=== PATIENT | female | born 1955 | race Caucasian/White ===

== ENCOUNTER 2016-09-02 16:05 | Inpatient (IN) | payer BC ==
[~2016-09-02] VITALS: Ht 167.6 cm; Wt 62.5 kg
--- NOTE | ~2016-09-02 | HP ---
[facility] AGE: 60 Y [address] ROOM: [id number] [place], [place] [address] LOCATION: GICU ADMIT DATE: 09/02/2016 History & Physical DISCHARGE DATE: FAMILY PHYSICIAN: PHYSICIAN, UNKNOWN ATTENDING PHYSICIAN: Montse RODRIGEZ DATE OF SERVICE: CHIEF COMPLAINT: Stroke. HISTORY OF PRESENT ILLNESS: The patient is a 60-year-old female with past medical history of lymphoma, status post chemotherapy and radiation, systolic CHF, and hypothyroidism, who presents here from [facility] with abnormal CT image. The patient reports that she has been having some word-finding difficulty since Monday. Reports that it got a little bit worse today and went to the emergency department for evaluation. CT head done at [facility] showed hypodensity changes in the left parietal lobe concerning for ischemic stroke and small high density change concerning for hemorrhagic conversion. The patient was transferred to our facility for a Neurology consult. The patient reports that she is currently asymptomatic and is able to communicate well. She reports that her symptoms of word-finding was intermittent. Currently asymptomatic. Reports that she takes aspirin daily and she has taken her aspirin today. She denies any vision change, nausea, vomiting, or abdominal pain, fall, motor weakness, headache, chest pain, shortness of breath. PAST MEDICAL HISTORY: 1. Lymphoma status post chemotherapy and radiation. 2. Systolic CHF. Told that it was secondary to her radiation. 3. Hypothyroidism. PAST SURGICAL HISTORY: section. FAMILY HISTORY: Mother had a CVA. Father has esophageal cancer. SOCIAL HISTORY: Works at [employer]. The patient has 3 kids and 6 grandkids. Denies smoking and drinking. MEDICATIONS: PAT[facility]'S NAME: [facility] AGE: 60 Y [address] ROOM: [id number] [place], [place] [address] LOCATION: CU ADMIT DATE: 09/02/2016 History & Physical DISCHARGE DATE: FAMILY PHYSICIAN: PHYSICIAN, UNKNOWN ATTENDING PHYSICIAN: Montse RODRIGEZ Currently being reconciled. REVIEW OF SYSTEMS: All systems have been reviewed and are negative except for what I mentioned in the HPI. PHYSICAL EXAMINATION: VITAL SIGNS: Temperature afebrile, blood pressure 132/77, heart rate 75, respiratory rate 16, and saturating 97% on room air. GENERAL APPEARANCE: The patient is alert and awake, in no acute distress. HEENT: Head; normocephalic and atraumatic. Eyes; extraocular muscle intact. Peripheral visual intact. Nose; no nasal discharge. Mouth; moist oral mucosa. CHEST: Clear to auscultation bilaterally. HEART: Regular rate and rhythm. No murmurs, rubs, or gallops. ABDOMEN: Soft, nontender, and nondistended. Bowel sounds present. SKIN: Warm to touch. MUSCULOSKELETAL: Range of motion intact. No obvious joint effusion. LABORATORY TECH: The patient alert and oriented x3. Very mild right nasolabial fold flattening. Motor and sensory grossly intact. Cranial nerve 2 through 12 grossly intact. LABORATORY DATA: Labs done at the outpatient shows sodium 139, potassium 4.3, BUN 28, creatinine 1.4, and blood glucose 84. White blood cell count of 5.3, hemoglobin 13.9, and platelets of 139,000. EKG; shows sinus rhythm, nonspecific T-wave changes in 1 and aVL. ASSESSMENT AND PLAN: 1. Cerebrovascular accident: The patient is a 60-year-old female who is presenting here with possible ischemic cerebrovascular accident. The patient is not a candidate for tPA as symptoms started since Monday. Image from outside hospital per Dr. Garcia shows hypodensity changes in the left parietal lobe with concern for ischemic change and some small high density changes with possible hemorrhagic conversion. We will hold aspirin or any antiplatelet for now. We will acquire MRI of the head. The patient has already received aspirin 81 mg today. We will start the patient on Lipitor. We will acquire morning lipid level. Her current NIH score is 1 with right-sided mild nasolabial level fold. She is alert and oriented x3 and no neurological deficits seen other than the nasolabial fold flattening. We will acquire echocardiogram, put the patient on telemonitor, and serial neurological examinations. We will acquire MRI of the head. Carotid duplex of her carotids and echocardiogram. We will hold antiplatelets due to possible hemorrhagic PATIENT'S NAME: COLUMBA CARDENAS [facility] AGE: 60 Y [address] ROOM: [id number], [place] [address] LOCATION: [facility] ADMIT DATE: 09/02/2016 History & Physical DISCHARGE DATE: FAMILY PHYSICIAN: PHYSICIAN, UNKNOWN ATTENDING PHYSICIAN: Montse RODRIGEZ conversion. Discussed the case with Dr. Villalpando, Neurology. Dr. Villalpando will see the patient while she is here. To reassess anti-platelet use after MRI. 2. Acute kidney injury. The patient has a creatinine of 1.4. Etiology most likely secondary to prerenal. We will hold the patient's lisinopril and diuretics. We will start the patient on IV fluids. We will acquire CMS daily. 3. Systolic heart failure. Last echocardiogram according to the patient was below 50%. The patient appears compensated. We will hold diuretics for now due to acute kidney injury. We will follow the patient closely. 4. Hypothyroidism. To continue home medication of Synthroid. 5. Lymphoma. In remission. Greater than 60 minutes were spent in patient's care. 50% of the time was spent in direct patient's care. Case discussed with Dr. Villalpando, our neurologist. To admit the patient as inpatient to workup for cerebrovascular accident and restart anti-platelet when bleeding risk has been identified to be acceptable. To await for MRI. All questions were answered with satisfaction. We will admit the patient. Code status on admission, full code. RAIN DARNELL MD AD/modl /[id number] D: [id number] T: [id number] HISTORY & PHYSICAL
--- NOTE | ~2016-09-02 | DS ---
PATIENT'S NAME: COLUMBA CARDENAS [facility] AGE: 60 Y [address] ROOM: [id number] [place] [address] LOCATION: [facility] ADMIT DATE: 09/02/2016 Discharge Summary DISCHARGE DATE: 09/03/2016 FAMILY PHYSICIAN: Meenu Payton MD ATTENDING PHYSICIAN: Montse RODRIGEZ PRIMARY DIAGNOSES: 1. Left middle cerebral artery strokes, subacute. 2. Expressive aphasia. 3. Chronic systolic congestive heart failure. 4. Essential hypertension. 5. Hypothyroidism. 6. History of lymphoma, currently in remission. OPERATIONS AND PROCEDURES: MRI scan of the brain was obtained 09/02/2016, demonstrating scattered acute/subacute ischemic areas in the distribution of left middle cerebral artery. MRA obtained 09/03/2016, negative for any abnormalities, echocardiogram obtained 09/03/2016, demonstrated an ejection fraction of 40-45%, diastolic dysfunction, septal hypokinesis, and no evidence for PFO or VSD, carotid Doppler ultrasounds obtained 09/03/2016, were pending at the time of discharge. HISTORY OF PRESENTING ILLNESS/REASON FOR ADMISSION: Please refer H and P dictated 09/02/2016. HOSPITAL COURSE: The patient has been to hospital as noted above after being transferred here from [place] with acute cerebrovascular accident. Her presentation was delayed by a couple of days, and therefore she was not a candidate for thrombolysis. Briefly, her symptoms had essentially resolved by the time she arrived here. She was placed on the stroke pathway. MRI scan was obtained as outlined above and she received Physical Therapy, Occupational Therapy, and Speech Therapy evaluations. Physiatry also consulted. Neurology did see her. She was switched from aspirin to Plavix daily and continued on her JELENA inhibitor therapy. Statin therapy with atorvastatin was also added. Her lipid profile was obtained and felt to be favorable. It was recommended that she continue with statin therapy however. Echocardiography and carotid Doppler ultrasounds were obtained. Echocardiography demonstrated an ejection fraction of 40-45%. It was felt that she was well compensated. There was no evidence for PFO or VSD or valve vegetations. By the second day of her hospital stay, the patient had received evaluation by Physical Therapy, Occupational Therapy, and Speech Therapy. She [facility] 60 Y [address] ROOM: [id number] [place], [place] [address] LOCATION: GICU ADMIT DATE: 09/02/2016 Discharge Summary DISCHARGE DATE: 09/03/2016 FAMILY PHYSICIAN: Meenu Payton MD ATTENDING PHYSICIAN: Montse RODRIGEZ felt that her symptoms had completely resolved and requested to go home at that point. Did licensed professional counselor her about her test results to this point including echocardiogram, MRI, and MRA results. We did not have a carotid Doppler result back yet, but she felt that she did want away for this and requested to follow up outpatient. Dr. Villalpando, neurologist had consulted and indicated by telephone that he would be okay with the patient being discharged on Plavix and statin therapy. At that point, it was felt she would be stable enough for discharge to home with plans for outpatient therapies as described above and clinical follow up with Neurology and primary care provider. DISCHARGE INSTRUCTIONS: Diet: Cardiac prudent as tolerated. Activity: As tolerated physical therapy, occupational therapy, and Speech Therapy as outpatient. MEDICATIONS: 1. Atorvastatin 80 mg p.o. daily. 2. Vitamin D3, 2000 units p.o. daily. 3. Plavix 75 mg p.o. daily. 4. Levothyroxine 75 mcg p.o. daily. 5. Metoprolol 12.5 mg p.o. daily. 6. Lisinopril 2.5 mg p.o. b.i.d. 7. Lasix 40 mg p.o. daily. 8. Potassium 10 mEq p.o. daily. 9. Magnesium oxide 400 mg p.o. daily. FOLLOWUP: She will follow up with Dr. Villalpando in 2 weeks. She will follow up with primary care provider in 5-7 days. CONDITION ON DISCHARGE: Fair. Total time spent on discharge process 45 minutes. MD MEY JIMENEZ/sherman /[id number] d: 09/04/16 0204 t: 09/13/16 0000, DISCHARGE SUMMARY
--- NOTE | ~2016-09-02 | CON ---
PATIENT'S NAME: COLUMBA SCHULTE [facility] AGE: 60 Y [address] ROOM: [id number] [place], [place] [address] LOCATION: GICU ADMIT DATE: 09/02/2016 Consultation DISCHARGE DATE: FAMILY PHYSICIAN: PHYSICIAN, UNKNOWN ATTENDING PHYSICIAN: Montse RODRIGEZ DATE OF CONSULTATION: 09/02/2016 TIME OF NEUROLOGIC CONSULTATION: 9 p.m. HISTORY OF PRESENT ILLNESS: Ms. Schulte is a 60-year-old female with a history of hypertension and history of lymphoma that was treated back in the mid , sometime around 2004. She also received radiation supposedly to the mediastinum. This was a non-Hodgkin lymphoma. The patient possibly had a history of hypercoagulable state in the past, and was told that "she had clots in the area of the heart" back a few years ago. The daughter who is a nurse mentions that it may have been secondary to radiation, though I am unclear if the patient has any depressed cardiac output associated with a cardiomyopathy or has a carotid disease associated with radiation to the chest wall. The patient never had a known stroke before. She was in her usual state of health working when she noticed back on Monday two days ago that she was not making sense with her words. She was slurring her speech intermittently throughout the day, and even her daughter noticed that her messages on her cell phone were having poor syntax and garbled. These symptoms were only occurring in and out throughout the day. She had no other symptoms such as a headache nor did she have any focal weakness nor sensory numbness of her body. She denied any problems with walking. She denied any problems with her vision. On the very next day, , she was back at work and noticed the same problems with word slurring, whereby she said she knew what words she wanted to say, but the words were coming out jumbled and without proper syntax. It was then that speaking to her daughter with some symptoms even ongoing into this morning that she decided to go to the Emergency Room in [facility]. There they assessed her with a CAT scan of the brain, and the CAT scan revealed evidence of an acute left MCA territory stroke. It was a small area of likely hemorrhagic conversion in the area of the stroke. We were called today by the physician assistant womens volleyball coach for transfer of this patient for further workup here. Upon her arrival here, the patient was actually doing well. She did not have any slurring of her speech as far as I could hear. She had normal power and PATIENT'S NAME: COLUMBA SCHULTE [facility] AGE: 60 Y [address] ROOM: [id number] [place], [place] [address] LOCATION: GICU ADMIT DATE: 09/02/2016 Consultation DISCHARGE DATE: FAMILY PHYSICIAN: PHYSICIAN, UNKNOWN ATTENDING PHYSICIAN: Montse RODRIGEZ normal sensory exam. I did not hear any errors of the language or problems with word finding. She has remained in normal sinus rhythm, and no evidence to suggest atrial fibrillation nor any rhythm other than normal sinus rhythm. Her blood pressure remains normal into the 120s range. Her CBC and complete metabolic panel were all within normal limits. The patient looked well. HOME MEDICATIONS: Include 1. Vitamin D supplementation 2000 mg daily. 2. Levothyroxine 75 mcg p.o. daily. 3. Toprol XL 12.5 mg p.o. daily. 4. Potassium supplementation 10 mEq p.o. daily. 5. Lisinopril, unknown dose. CURRENT MEDICATIONS: Here in the hospital were 1. Metoprolol 12.5 mg p.o. daily. 2. Levothyroxine 75 mcg p.o. daily. 3. Vitamin D 2000 mg daily. 4. Plavix started on this admission 75 mg p.o. daily. 5. Lipitor started on this admission 80 mg p.o. daily. FAMILY HISTORY: Inconsistent with any cancers or lymphoma. There is no known history of stroke. SOCIAL HISTORY: She denies ever using alcohol. She never smoked. She currently resides in [place]. REVIEW OF SYSTEMS: The patient presented with new onset of aphasia, solely a motor aphasia. No problems with understanding. Speech, some syntax errors were noted in her language over the past 48 hours. She has no focal weakness or sensory complaints. She never had any headaches at the onset of her stroke. She clearly had evidence on CAT scan as well as her MRI of a new territory stroke into the left MCA region of the brain. PHYSICAL EXAMINATION: NEUROLOGICAL: The patient is pleasant and answers all questions appropriately. Mental status is excellent. Speech is clear, I did not appreciate any errors of her speech. In repetition and naming of objects and parts of objects, she named pen and pen tip adequately. She did cross-body commands. Cranial Nerves: A subtle right flattening of the nasolabial fold, but the rest of the cranial nerve exam is normal. 5/5 power with no drift of PATIENT'S NAME: COLUMBA SCHULTE [facility] AGE: 60 Y [address] ROOM: [id number], [place] [address] LOCATION: [facility] ADMIT DATE: 09/02/2016 Consultation DISCHARGE DATE: FAMILY PHYSICIAN: PHYSICIAN, UNKNOWN ATTENDING PHYSICIAN: Montse RODRIGEZ the upper extremities was noted. There was normal bulk and tone of all muscles, and normal power of 5/5 grade in all muscles. Reflexes: Symmetric +2 in deep tendon reflexes of the lower extremities and upper extremities. Sensory exam was completely intact to light touch and double simultaneous stimulation. The patient is able to ambulate easily and no problems with gait. Negative Romberg. IMPRESSION AND RECOMMENDATIONS: Ms. Schulte is a 60-year-old female with essentially no risks for this type of a stroke, which is a large territory stroke into multiple branches of the left middle cerebral artery. Remarkably, she is essentially very emi. It is likely a thromboembolism dislodged into the left MCA. Maybe it was there for some time, and then got dislodged. That is the reason for the patient having a stroke. A proximal region for the clot would be either from the heart itself if the patient does have evidence for the decreased ejection fraction such as hypokinesis or even from a cardiac valve. If this is some type of marantic process, her lymphoma is thought to be stable and cured. However, this is just a conjecture. At some point in time, the patient was on anticoagulation, which sounded like she was on warfarin with Lovenox. She is off this medication for a number of years. I am wondering if she would ultimately require anticoagulation due to a proximal source for embolization. It is important that we get a transthoracic echocardiogram to rule out any evidence of a depressed left ventricular function, and just maybe do a CORDELL to look for evidence of a vegetation on a heart valve. Furthermore, a duplex exam of the carotids is important to rule out any evidence of endothelial dysfunction in a patient who had received radiation to the chest wall and even to the neck region due to the prior lymphoma tumor. The patient is being placed now on anti-platelet agent to Plavix since the stroke occurred on aspirin. Most importantly for plaque stabilization, she was placed on 80 mg of Lipitor. We will continue to work closely with the hospitalist concerning the need ultimately for this patient to receive anticoagulation. In the short term, we would not want to place anticoagulation on board due to the fairly large territory size of this stroke. Usually, we would wait for greater than 7 to 10 days if it is necessary for oral anticoagulation. We will follow along again with the hospitalist service. MD JOHANNA BRANTLEY/sherman PATIENT'S NAME: COLUMBA SCHULTE [facility] AGE: 60 Y [address] ROOM: [place] [address] LOCATION: [facility] ADMIT DATE: 09/02/2016 Consultation DISCHARGE DATE: FAMILY PHYSICIAN: PHYSICIAN, UNKNOWN ATTENDING PHYSICIAN: Montse RODRIGEZ /[id number] d: 09/03/16329 t: 09/21/16 1749, CONSULTATION REPORT
--- NOTE | ~2016-09-02 | ECHO ---
Transthoracic Echocardiography Report (TTE) Demographics Patient Name COLUMBA CARDENAS Date of Study 09/03/2016 Patient Number [id number] Visit Number [id number] Date of 1955 Room Number [id number] Gender Female Number Age 60 year(s) Referring Mya Willard Marketing Team Lead Tabby RVT, RDCS Physician Olga Physician Interpreting Ana Beth A Winch Operator Physician MD Supervising Ordering Mya Willard MD/MLP Physician Nurse Stress Tip Cutter Conclusions Contractility Score Summary Hypokinesis of the Mid infero-septal, the Apical inferior, the Basal fanny-septal, the Basal infero-septal and the Apical cap segments. Summary The estimated left ventricular ejection fraction is 40-45%. The left ventricle is mildly dilated . Diastolic assessment reveals Grade II pseudonormal diastolic function. . Severe septal hypokinesis Inferobasal hypokinesis. The left atrium is mildly dilated. Informed consent was obtained, bubble study was done, there is no evidence for a PFO or ASD. In some views there is appearance of posterior leaflet prolapse Moderate mitral regurgitation by color Doppler. There is mild aortic regurgitation by color Doppler. Mild tricuspid regurgitation by color Doppler. Upper normal estimated PA pressure. IVC is mildly dilated. Procedure Type of Study TTE procedure:Echo with Contrast. Procedure Date Date: 09/03/2016 Start: 08:13 AM Study Location: Inpatient Portable Technical Quality: Adequate visualization Indications:CVA. Appropriate Use Criteria: 9 Patient Status: Routine HR: 74 bpm BP: 125/77 mmHg M-Mode/2D Measurements LV Diastolic Dimension: 5.63 cm LV Systolic Dimension: 5.09 cm LV Septum Diastolic: 0.97 cm LV PW Diastolic: 0.96 cm AO Root Dimension: 3.1 cm Cardiac Output: 2.29 l/min AV Cusp Separation: 1.8 cm RV Diastolic Dimension: 1.64 cm LA volume: 17 ml LVOT: 2.1 cm RV Base: 2.93 cm LVOT VTI: 8.92 cm RV Mid: 1.9 cm LV Stroke volume: 30.88 ml Doppler Measurements AV Peak Velocity: 0.85 m/s MV Peak E-Wave: 0.61 m/s AV Peak Gradient: 2.86 mmHg MV Peak A-Wave: 0.43 m/s AV Mean Gradient: 2 mmHg MV E/A Ratio: 1.42 LVOT Peak Velocity: 0.38 m/s MV P1/2t: 60 msec AV P1/2t: 971 msec TR Gradient:26.21 mmHg PV Peak Velocity: 0.64 m/s Estimated RAP:3 mmHg PV Peak Gradient: 1.63 mmHg Estimated RVSP: 29 mmHg Estimated PASP: 29.21 mmHg E' Septal Velocity: 0.06 m/s A' Septal Velocity: 0.1 m/s E' Lateral Velocity: 0.07 m/s A' Lateral Velocity: 0.05 m/s Findings Left Ventricle The left ventricle is mildly dilated . Diastolic assessment reveals Grade II pseudonormal diastolic function. . Severe septal hypokinesis Inferobasal hypokinesis. Right Ventricle Normal right ventricle structure and function. Left Atrium The left atrium is mildly dilated. Informed consent was obtained, bubble study was done, there is no evidence for a PFO or ASD. Right Atrium Normal right atrial size. Mitral Valve In some views there is appearance of posterior leaflet prolapse Moderate mitral regurgitation by color Doppler. Aortic Valve There is mild aortic regurgitation by color Doppler. Tricuspid Valve Mild tricuspid regurgitation by color Doppler. Upper normal estimated PA pressure. Pulmonic Valve Mild pulmonic valve regurgitation by color Doppler. Pericardial Effusion No evidence of pericardial effusion. Miscellaneous IVC is mildly dilated. Pleural Effusion No evidence of pleural effusion. Contractility Score LV regional wall motion:(0-Non visualized 1-Normal 2-Hypokinesis 3-Akinesis 4-Dyskinesis 5-Aneurysm) Signature dtt: Aftab Perez dtd: 09/03/16 0813 Physician Self Edit
--- NOTE | ~2016-09-02 | CON ---
PATIENT'S NAME: COLUMBA CARDENAS [facility] AGE: 60 Y [address] ROOM: [place] [address] LOCATION: GICU ADMIT DATE: 09/02/2016 Consultation DISCHARGE DATE: FAMILY PHYSICIAN: Meenu Payton MD ATTENDING PHYSICIAN: Montse RODRIGEZ A consult for Dr. White. HISTORY OF PRESENT ILLNESS: This 60-year-old pleasant lady with history of lymphoma, chemotherapy and radiation, status post systolic congestive heart failure, had sudden onset of word finding difficulty, did not seek any help. Next day, she had it again after a period of being okay again with expressive language difficulty. Eventually, she waited until she got out of work. She did go to emergency room and was seen and transferred here to [facility] for definitive management. She denied any history of headache. No double vision. Denied any syncope. Denied any trauma. No dizziness. No chest pain. No palpitation. No shortness of breath. Denied any abdominal pain. No cough, no sputum, no chills. History of lymphoma as stated above and history of hypothyroid. History of systolic congestive heart failure. PHYSICAL EXAMINATION: GENERAL: At the present time, she is alert and oriented. She is telling me that everything is back to normal. VITAL SIGNS: Blood pressure 109/74, temperature 98.1, pulse 83, respiration rate 16. She is 5 feet 6 inches tall and weighs 62.5 kg. She is at the present time able to follow instructions. Attention span is good and within normal limits. Can comprehend and express without difficulty. Her voice is clear and not wet. Cranial nerves 2 through 12 are within normal limits. She can move all four. Muscle strength throughout is at least 4/5. She has good bowel and bladder control. Neurologically intact. MEDICATIONS: She is on the following medications: 1. Metoprolol. 2. Vitamin D3. 3. Thyroxine. 4. Plavix. 5. NaCl 0.9%. PATIENT'S NAME: COLUMBA CARDENAS [facility] AGE: 60 Y [address] ROOM: [place] [address] LOCATION: GICU ADMIT DATE: 09/02/2016 Consultation DISCHARGE DATE: FAMILY PHYSICIAN: Meenu Payton MD ATTENDING PHYSICIAN: Montse RODRIGEZ 6. Tylenol. 7. Lipitor. 8. Protonix. ASSESSMENT AND PLAN: She is doing well, able to work with PT, OT, and Speech without difficulty. I feel that she should continue on PT, OT, and Speech while here and because she is doing well and if she continues to do well, she can go on outpatient basis and follow with her family physician. I have advised her not to drive until she is evaluated. I will follow alongside with you while here. Thank you for this referral. All the above was explained to her in detail. She verbalized understanding and agreement. RILEY MACKENZIE MD WMS/modl /[id number] d: 09/03/16 1515 t: 09/04/16 0833, CONSULTATION REPORT
--- NOTE | ~2016-09-02 | ENPV ---
Carotid Duplex Study Demographics Patient Name COLUMBA CARDENAS Date of Study 09/03/2016 Patient Number [id number] Gender Female Date of 1955 Age 60 Visit Number [id number] Height 66 Accession Number [id number] Weight 140 Referring Mya Thorpe MD Physician Physician Physician Kendrick [employer] Tech Physician Enologist Tabby [facility], [facility] Conclusions Summary The right internal carotid artery has mild, 1-39%, plaque and stenosis. The left internal carotid artery has mild, 1-39%, plaque and stenosis. The bilateral vertebral arteries are patent and antegrade. The bilateral subclavian arteries are patent and biphasic. Procedure Type of Study: Cerebral:Carotid, Carotid Doppler Bilateral. Indications for Study:Aphasia-other speech disturbance and Stroke. Appropriate Use Criteria:9 Blood Pressure:Right arm 125/77 mmHg.Left arm 117/76 mmHg. Patient Status:Routine. Study Location:Inpatient Portable. Technical Quality:Adequate visualization. Velocities are measured in cm/s ; Diameters are measured in cm Carotid Right Measurements Carotid Left Measurements + +--------+--------+ + + + +--------+ --------+ + + !Location !PSV !EDV !Angle !%Stenosis ! !Location !PSV ! EDV !Angle !%Stenosis ! + +--------+--------+ + + + +--------+ --------+ + + !Prox CCA !66 !17 !60 ! ! !Prox CCA !62 ! 17 !60 ! ! + +--------+--------+ + + + +--------+ --------+ + + !Dist CCA !61 !24 !52 ! ! !Dist CCA !66 ! 19 !56 ! ! + +--------+--------+ + + + +--------+ --------+ + + !Prox ICA !26 !12 !56 ! ! !Prox ICA !25 ! 11 !42 ! ! + +--------+--------+ + + + +--------+ --------+ + + !Dist ICA !50 !21 !56 ! ! !Dist ICA !46 ! 20 !52 ! ! + +--------+--------+ + + + +--------+ --------+ + + !Prox ECA !29 ! !56 ! ! !Prox ECA !31 ! !52 ! ! + +--------+--------+ + + + +--------+ --------+ + + !Vertebral !59 ! !56 ! ! !Vertebral !39 ! !60 ! ! + +--------+--------+ + + + +--------+ --------+ + + !Subclavian !77 ! !48 ! ! !Subclavian !45 ! !50 ! ! + +--------+--------+ + + + +--------+ --------+ + + - Add'l Measurements:ICAPSV/CCAPSV 0.75.ICAEDV/CCAEDV 1.25. - Add'l Measurements:ICAPS V/CCAPSV 0.73.ICAEDV/CCAEDV 1.19. Signature dtt: HARRY WILKERSON dtrenato: 09/03/16 0751 Physician Self Edit
--- NOTE | 2016-09-02 16:56 | NUR ---
Pt is 60 y/o female admit for speech abnormalities/poss stroke for hospitalist. Allergies to Biaxin/macrolides. Pt alert and oriented x3, but minimizes her health hx and is not forthcoming with information. States she would like to go home. Pt came via ambulance from [facility] ED where she left AMA earlier today and then went back for tx. Hx lymphoma-2005,hypothyroid,htn, edema,heart damage from radiation. Pt states her problems started on Monday when she had trouble with her speech and finding the words, then she reports yesterday she was fine. Today her abnormal speech symptoms returned. Neurology to consult.
[2016-09-02] MEDS ORDERED: ZESTRIL2.5 MG PO (17:48)
[2016-09-02] MEDS ORDERED: LEVOTHROID(SYN75 MCG PO (17:49)
[2016-09-02] MEDS ORDERED: LASIX40 MG PO (17:49)
[2016-09-02] MEDS ORDERED: K-TAB 10MEQ10 MEQ PO (17:49)
[2016-09-02] MEDS ORDERED: TOPROL XL25 MG PO (17:50)
[2016-09-02] MEDS ORDERED: VITAMIN D1000 UNIT PO (17:50)
[2016-09-02] MEDS ORDERED: ASPIRIN (CHILDR81 MG PO (17:50)
[2016-09-02] MEDS ORDERED: MAG-OX-400(241400 MG PO (17:50)
--- NOTE | 2016-09-02 19:19 | NUR ---
Significant Event: Admitted to [facility] at 1710. a/o x 3. denies pain. NIHSS=0. IV to right hand saline locked. passed swallowing evaluation. plan for MRI this evening and heart echo, EKG and carotid dopplers tomorrow.
--- NOTE | 2016-09-03 04:21 | NUR ---
Significant Event: a/ox3. denies numbness and tingling. moves all extremities spontaneously and to command. no aphasia. nihss 0. up SBA. afebrile. SBP in 100s-110s. HR 70s-80s. lungs clear on room air. slight edema in lower extremities. Q6 accuchecks. SCDs intact. Denies pain. IV to right forearm running NS at 100ml/hr. Regular diet. MRI done tonight. MRA, dopplers, Echo to be done today. Follow up: possibly home today after tests.
[2016-09-03 05:59] LABS: ANION GAP 9.5 (10.0-19.0); CALCIUM 8.2 mg/dL (8.5-10.5); POTASSIUM 4.5 mMol/L (3.7-5.1); TOTAL BILIRUBIN 1.2 mg/dL (0.0-1.5); TOTAL PROTEIN 5.8 g/dL (6.0-8.4)
--- NOTE | 2016-09-03 07:50 | NUR ---
ROUTINE CONSULT PER STROKE PROTOCOL NOTED. WILL COMPLETE IF APPROPRIATE PRIOR TO DISMISSAL.
[2016-09-03] MEDS ORDERED: LIPITOR80 MG PO (14:27)
[2016-09-03] MEDS ORDERED: PLAVIX75 MG PO (14:28)
== END 2016-09-03 15:22 | disposition disaster alternative care site (69) | DRG 65 ==
LOC: GICU 16:05
PROVIDERS: ADMIT Internal Medicine
DX: I63.9 Cerebral infarction, unspecified (principal); I50.22 Chronic systolic (congestive) heart failure; N17.9 Acute kidney failure, unspecified; R47.01 Aphasia; I11.0 Hypertensive heart disease with heart failure; E03.9 Hypothyroidism, unspecified; Z85.72 Personal history of non-Hodgkin lymphomas; Z80.0 Family history of malignant neoplasm of digestive organs; Z92.21 Personal history of antineoplastic chemotherapy; E78.00 Pure hypercholesterolemia, unspecified; Z92.3 Personal history of irradiation; Z79.82 Long term (current) use of aspirin
CPT/HCPCS: C8929; J7030